=== PATIENT | male | born 1945 | race Caucasian/White ===

== ENCOUNTER 2018-06-23 08:06 | Day surgery (SDC) | payer MEDICARE ==
--- NOTE | 2018-06-22 04:12 | HP ---
PREOPERATIVE HISTORY AND PHYSICAL: DATE OF ADMISSION/SURGERY: 06/26/[address] [facility] DATE OF OFFICE VISIT/ENCOUNTER: 06/15/18 ATTENDING SURGEON: Hannah Mcfadden MD * (DICTATED BY ALESSANDRO LATHAM) PROCEDURE: Right wrist carpal tunnel release. CHIEF COMPLAINT: Numbness and tingling, right hand. HISTORY OF PRESENT ILLNESS: This is a 73-year-old male who has had carpal tunnel syndrome on both hands, much worse on the right than on the left for many years, he says he thinks perhaps 35 years. It has recently become more bothersome. It is disturbing his sleep and he is really having a problem with that. He would like to have a more permanent solution. He wears a wrist brace , which is minimally helpful. He has at this time consented to proceed with surgical intervention for his right wrist carpal tunnel syndrome. PAST MEDICAL HISTORY: 1. Hypercholesterolemia. 2. Hypertension. 3. GERD. 4. Mass in the right kidney, monitored at [facility]. PAST SURGICAL HISTORY: 1. Whipple procedure. 2. Cholecystectomy. 3. Prostatectomy. 4. Basal cell excision. 5. Tonsillectomy. MEDICATIONS: 1. Atorvastatin calcium 20 mg daily. 2. Aspirin low strength 81 mg daily. 3. Calcium plus D 600/200 mg per unit 1 daily. 4. D3 2000 units 1 tablet daily. 5. Fiber formula. 6. Levothyroxine sodium 200 mcg daily. 7. Lisinopril/hydrochlorothiazide 20/12.5 mg daily. 8. Omeprazole 20 mg daily. ALLERGIES: BACITRACIN causes septic shock. FAMILY MEDICAL HISTORY: Noncontributory. SOCIAL HISTORY: The patient is retired. He quit smoking in the early . Prior to that, he smoked up to a pack per day. He does currently smoke marijuana on occasion and drinks alcohol on occasion. REVIEW OF SYSTEMS: Negative for general, cephalic, cardiovascular, respiratory , GI, , other musculoskeletal, integumentary, endocrine, neurologic, and hematologic symptoms. Infectious Diseases: Negative for MRSA, hepatitis C, HIV. PHYSICAL EXAMINATION GENERAL: Well-developed, well-nourished 73-year-old male, in no acute distress. VITAL SIGNS: Height 5 feet 11 inches, weight 259 pounds. Pulse rate 54, blood pressure 118/78. HEENT: Normocephalic, atraumatic. Pupils are equal, round, and reactive to light and accommodation. Extraocular movements are intact. Throat is clear. NECK: Supple. No palpable lymph nodes. PULMONARY: Lungs are clear to auscultation bilaterally. No wheezes, rales, or rhonchi. CARDIOVASCULAR: Regular rate and rhythm. S1, S2. No murmurs, rubs, or gallops. No edema. ABDOMEN: Positive bowel sounds. Soft, nontender. NEUROLOGICAL: Alert and oriented x3. Cranial nerves II through XII are intact. Sensation is intact to light touch. MUSCULOSKELETAL: On exam of his right hand, he has slight thenar wasting and significant weakness with thumb abduction on the right compared to the left. He has good motion in his fingers. He has intact sensation to light touch. Positive median nerve compression test. Negative ulnar nerve Tinel's sign at the elbow and at the wrist. IMPRESSION: Right wrist carpal tunnel syndrome. PLAN: The patient is scheduled to undergo a right wrist carpal tunnel release with Dr. Mcfadden on 06/23/18. He will return to the office 10 days postop for followup and suture removal. A prescription for Ultracet was e-scribed to the patient's pharmacy for postoperative pain management. ALESSANDRO LATHAM [id number]/[facility] #: [id number] ELL[place]
[~2018-06-23 08:06] MED LIST: Buffered Lidocaine 1% SYRIN* 1 ML/SYRINGE INTRADERM ONE; Lactated Ringers 1000 ML Bag* 1,000 ML IV SCH
[2018-06-23] MEDS ORDERED: Midazolam* 1 MG/ML 5 ML VIAL (5 MG) ONE (09:13)
[2018-06-23] MEDS ORDERED: fentaNYL* 50 MCG/ML 2 ML VIAL (100 MCG VIAL) ONE (09:13)
[2018-06-23] MEDS ORDERED: Naloxone* 0.4 MG/ML 1 ML VIAL IV PRN (10:19)
[2018-06-23 10:31] VITALS: BP 112/58
[2018-06-23] MEDS ORDERED: Lidocaine 1% INJ* 10 MG/ML 30 ML SDV ONE (11:53)
--- NOTE | 2018-06-23 20:46 | OP ---
DATE OF OPERATION: 06/23/18 [facility] DATE OF : 41 SURGEON: Dr. Mcfadden. TRACK GRINDER: ALESSANDRO Mireles ANESTHESIA: Local MAC. PRE-OP DIAGNOSIS: Right carpal tunnel syndrome. POST-OP DIAGNOSIS: Right carpal tunnel syndrome. OPERATIVE PROCEDURE: Right carpal tunnel release. INDICATIONS FOR PROCEDURE: Cal is a 73-year-old man with numbness and tingling in the median nerve distribution of his right hand. He presents for right carpal tunnel release. ESTIMATED BLOOD LOSS: 0. TOURNIQUET TIME: Approximately 10 minutes. DESCRIPTION OF PROCEDURE: The patient was brought to the operating room, was given a sedation anesthetic and a local infiltration of 10 cc of 1% plain lidocaine in the palm of his right hand. The skin of his right hand and forearm was prepped and draped in the usual sterile fashion. The hand and forearm were exsanguinated and the tourniquet elevated to 250 mmHg. A longitudinal incision was made in the palm in line with his ring finger. We dissected through the subcutaneous tissue down to the transverse carpal ligament. The ligament was divided sharply with a knife and then more proximally with the scissors. The nerve was dissected free from the surrounding tissue and there was an area of significant compression at the mid portion of the ligament. The wound was irrigated and the skin edges were reapproximated with 4-0 nylon suture. The wound was dressed with Xeroform, 4x4 , Webril, and an Arturo wrap. The patient tolerated the procedure well and was brought to the recovery room in good condition. [id number]/[facility] #: [id number] [facility]
== END 2018-06-23 11:15 | disposition home or self-care (01) ==
LOC: OREAST 08:06
PROVIDERS: ATTEND Orthopaedic Surgery
DX: G56.01 Carpal tunnel syndrome, right upper limb (principal); I10 Essential (primary) hypertension; E78.00 Pure hypercholesterolemia, unspecified; K21.9 Gastro-esophageal reflux disease without esophagitis; Z85.828 Personal history of other malignant neoplasm of skin; N18.9 Chronic kidney disease, unspecified; Z87.891 Personal history of nicotine dependence
CPT/HCPCS: J2250; J3010